=== PATIENT | male | born 1980 | race Caucasian/White ===

== ENCOUNTER 2017-02-06 09:12 | Emergency (ER) | payer SELFPAY ==
[2017-02-06 09:39] VITALS: BP 127/79
--- NOTE | 2017-02-06 11:18 | RAD ---
INDICATION: Right hand injury COMPARISON: None TECHNIQUE: AP, lateral, and oblique views were obtained. FINDINGS: There is no acute fracture or dislocation. There is soft tissue swelling. IMPRESSION: NEGATIVE RIGHT HAND
--- NOTE | 2017-02-06 11:33 | UC ---
Hand/Wrist HPI - HPI Summary HPI Summary: TRIPPED AND FELL YESTERDAY. LANDED ON MEDIAL SIDE OF RIGHT WRIST AND HAND. HAS SOME PAIN. NO NUMBNESS OR TINGLING. - History Of Current Complaint Chief Complaint: UCUpperExtremity Stated Complaint: FELL-RT ARM/WRIST INJURY Time Seen by Provider: 02/06/17 10:50 Hx Obtained From: Patient Onset/Duration: Sudden Onset, Lasting Hours, Still Present Severity Initially: Mild Severity Currently: Mild Pain Intensity: 2 Pain Scale Used: 0-10 Numeric Character Of Pain: Aching Aggravating Factor(s): Movement Alleviating: Rest Associated Signs And Symptoms: Negative: Swelling, Redness, Bruising, Fever, Weakness, Numbness/Tingling Related History: Dominant Hand Right - Allergies/Home Medications Allergies/Adverse Reactions: Allergies Allergy/AdvReac Type Severity Reaction Status Date / Time No Known Allergies Allergy Verified 02/06/17 09:39 Home Medications: Home Medications FLUoxetine CAP* [Prozac CAP*] 40 mg PO DAILY 02/06/17 [History Confirmed ] PMH/Surg Hx/FS Hx/Imm Hx Endocrine History Of: Denies: Diabetes, Thyroid Disease Cardiovascular History Of: Denies: Cardiac Disorders, Hypertension Respiratory History Of: Denies: COPD, Asthma GI/ History Of: Denies: Ulcer Psychological History Of: Reports: Depression - Family History Known Family History: Negative: Hypertension - Social History Alcohol Use: None Substance Use Type: None Smoking Status (MU): Never Smoked Tobacco Review of Systems Constitutional: Negative Skin: Negative Respiratory: Negative Cardiovascular: Negative Gastrointestinal: Negative Musculoskeletal: Arthralgia All Other Systems Reviewed And Are Negative: Yes Physical Exam Triage Information Reviewed: Yes Appearance: Well-Appearing, No Pain Distress, Well-Nourished Vital Signs: Initial Vital Signs Temp 98.6 F 02/06/17 09:33 Pulse 73 02/06/17 09:33 Resp 16 02/06/17 09:33 BP 127/79 02/06/17 09:33 Pulse Ox 97 02/06/17 09:33 Vital Signs Reviewed: Yes Eyes: Positive: Conjunctiva Clear ENT: Positive: Hearing grossly normal Neck: Positive: Supple Respiratory: Positive: No respiratory distress, No accessory muscle use Cardiovascular: Positive: Pulses Normal Abdomen Description: Positive: Soft Musculoskeletal: Positive: ROM Intact, No Edema, Other: - MILDLY TENDER OVER 4TH AND 5TH METACARPALS RIGHT HAND. MILD EDEMA Neurological: Positive: Alert Psychological: Positive: Age Appropriate Behavior Skin: Negative: rashes Diagnostics - Radiology RIGHT HAND XRAYS Xray Interpretation: Positive (See Comments) - SOFT TISSUE SWELLING Radiology Interpretation Completed By: Radiologist Hand/Wrist Course/Dx - Differential Dx/Diagnosis Provider Diagnoses: RIGHT HAND CONTUSION Discharge - Discharge Plan Condition: Stable Disposition: HOME Patient Education Materials: Contusion in Adults (ED) Referrals: No Primary Care Phys,NOPCP [Primary Care Provider] - Additional Instructions: XRAY NEGATIVE FOR FRACTURE OR DISLOCATION. OTC MEDS NEEDED FOR DISCOMFORT. CONTUSION: Your injury has resulted in a contusion -- a crushing of the deep tissues. No injury to important structures was detected during the physician's exam. Contusions vary in the amount of pain they cause, and in the length of time required for healing. Typically, the area will become bruised, and will remain painful to touch for two or three weeks. However, most patients are back to working and playing within a few days. After the initial period of rest and cold-packs, your symptoms (together with the doctor's recommendations) will determine how rapidly you can get back to full activity. Usually this means "do what feels okay, but don't do things that hurt." If re-examination was recommended, it's important to follow up as instructed. Call the doctor or return any time if pain increases, if swelling becomes severe, if you develop numbness or weakness in an injured extremity, or if any other alarming symptoms occur. CALL THE NUMBER BELOW FOR ASSISTANCE IN ESTABLISHING WITH A PCP An additional resource available to assist in finding the appropriate physician for your health care needs is the [facility] ([facility]). You may contact them by calling [phone].
== END 2017-02-06 11:43 | disposition home or self-care (01) ==
LOC: UCEAST 09:12
DX: S60.221A Contusion of right hand, initial encounter (principal); W01.0XXA Fall on same level from slipping, tripping and stumbling without subsequent striking against object, initial encounter; Y93.9 Activity, unspecified; Y92.9 Unspecified place or not applicable; F32.9 Major depressive disorder, single episode, unspecified
CPT/HCPCS: 99211; G0463

== ENCOUNTER 2017-02-20 17:33 | Emergency (ER) | payer BC ==
[2017-02-20] MEDS ORDERED: Ondansetron ODT TAB* 4 MG PO ONE (18:46)
--- NOTE | 2017-02-20 18:47 | UC ---
Abdominal Pain Male HPI - HPI Summary HPI Summary: Day 2 of abd pain nausea not hungry, no vomiting or diarrhea, low grade temp right flank pain - History of Current Complaint Chief Complaint: UCGeneralIllness Stated Complaint: DIZZINESS, AND ABDOMINAL PAIN Time Seen by Provider: 02/20/17 18:41 Hx Obtained From: Patient Onset/Duration: Gradual Onset, Lasting Days - 2, Still Present Timing: Constant Severity Initially: Moderate Severity Currently: Moderate Pain Intensity: 6 Pain Scale Used: 0-10 Numeric Location: Epigastric Radiates: No Radiates to: Flank Character: Aching Aggravating Factor(s):: Food Alleviating Factor(s): Nothing Associated Signs And Symptoms: Positive: Fever, Back Pain, Decreased Appetite, Nausea. Negative: Blood in Stool, Urinary Symptoms, Vomiting, Diarrhea, Penile Discharge - Allergies/Home Medications Allergies/Adverse Reactions: Allergies Allergy/AdvReac Type Severity Reaction Status Date / Time No Known Allergies Allergy Verified 02/20/17 17:40 Home Medications: Home Medications Cholecalciferol [Vitamin D] 1,000 unit PO DAILY 02/20/17 [History Confirmed ] PMH/Surg Hx/FS Hx/Imm Hx Previously Healthy: No Endocrine History Of: Denies: Diabetes, Thyroid Disease Cardiovascular History Of: Denies: Cardiac Disorders, Hypertension Respiratory History Of: Denies: COPD, Asthma GI/ History Of: Denies: Ulcer Psychological History Of: Reports: Depression - Surgical History Surgical History: None - Family History Known Family History: Negative: Hypertension - Social History Occupation: Employed Full-time Lives: With Family Alcohol Use: None Substance Use Type: None Smoking Status (MU): Never Smoked Tobacco Review of Systems Constitutional: Fatigue Skin: Negative Eyes: Negative ENT: Negative Respiratory: Negative Cardiovascular: Negative Gastrointestinal: Abdominal Pain Genitourinary: Negative Motor: Negative Neurovascular: Negative Musculoskeletal: Negative Neurological: Headache Psychological: Negative All Other Systems Reviewed And Are Negative: Yes Physical Exam Triage Information Reviewed: Yes Appearance: Ill-Appearing, Pain Distress, Obese Vital Signs: Initial Vital Signs Temp 100.4 F 02/20/17 17:37 Pulse 87 02/20/17 17:37 Resp 16 02/20/17 17:37 BP 129/81 02/20/17 17:37 Pulse Ox 99 02/20/17 17:37 Vital Signs Reviewed: Yes Eye Exam: Normal Eyes: Positive: Conjunctiva Clear ENT Exam: Normal ENT: Positive: Normal ENT inspection, Hearing grossly normal, Pharynx normal, TMs normal. Negative: Nasal congestion, Nasal drainage, Tonsillar swelling, Tonsillar exudate, Trismus, Muffled/hoarse voice Dental Exam: Normal Neck exam: Normal Neck: Positive: Supple, Nontender, No Lymphadenopathy Respiratory Exam: Normal Respiratory: Positive: Chest non-tender, Lungs clear, Normal breath sounds, No respiratory distress, No accessory muscle use Cardiovascular Exam: Normal Cardiovascular: Positive: RRR, No Murmur, Pulses Normal, Brisk Capillary Refill Abdominal Exam: Normal Abdomen Description: Positive: No Organomegaly, Soft, CVA Tenderness (R). Negative: Distended, Guarding, McBurney's Point Tenderness, Peritoneal Signs, Splenomegaly Bowel Sounds: Positive: Present Musculoskeletal Exam: Normal Musculoskeletal: Positive: Strength Intact, ROM Intact, No Edema Neurological Exam: Normal Neurological: Positive: Alert, Muscle Tone Normal Psychological Exam: Normal Skin Exam: Normal Diagnostics - Laboratory Diagnostic Studies Completed/Ordered: ua-+ blood, bili, urobili, protien - Radiology No standard instances Xray Interpretation: No Acute Changes Radiology Interpretation Completed By: Radiologist Abd Pain Male Course/Dx - Course Course Of Treatment: NPO, to [facility] [place] by [facility] car for further evaluation - Differential Dx/Clinical Impression Differential Diagnosis/HQI/PQRI: Appendicitis, Diverticulitis, Gall Bladder Disease, Ischemic Bowel, Pancreatitis, Renal Colic Provider Diagnoses: Abd Pain, hematuria - Physician Notification/Consults Discussed Patient Care With: Ibeth VILLAGOMEZ Time Discussed With Above Provider: 20:30 Instructed by Provider To: Transfer Discharge - Discharge Plan Condition: Fair Disposition: AGAINST MEDICAL ADVICE
--- NOTE | 2017-02-20 20:17 | RAD ---
Indication: Right flank pain, hematuria. CT of the abdomen and pelvis was performed without oral or IV contrast administration. Coronal and sagittal reconstructed images were obtained. Lung bases demonstrate some scarring in the left lung base. No pleural fluid is identified. The heart demonstrates no pericardial effusion. Liver is normal in size. No focal lesions or intrahepatic ductal dilatation is noted. The gallbladder demonstrates no calcified gallstones. No pericholecystic fluid or wall thickening is noted. The spleen is normal in size. The pancreas images no mass or pancreatic duct dilatation. The common duct is not dilated. No adrenal masses are noted. The kidneys demonstrate no hydronephrosis in either kidney. No retroperitoneal lymphadenopathy is noted. No dilated loops of bowel are noted. Aorta and inferior vena cava are unremarkable. CT of the pelvis demonstrates no retroperitoneal or pelvic lymphadenopathy. The urinary bladder is otherwise unremarkable. No evidence of obstructive uropathy is noted. Urinary bladder is unremarkable. No free fluid is identified. No hernias are identified. IMPRESSION: NO EVIDENCE OF OBSTRUCTIVE UROPATHY IS NOTED. NO OTHER MASSES OR FLUID COLLECTIONS ARE IDENTIFIED.
[2017-02-20 20:48] VITALS: BP 127/85
== END 2017-02-20 20:48 | disposition left against medical advice (07) ==
LOC: UCEAST 17:33
DX: R10.9 Unspecified abdominal pain (principal); R31.9 Hematuria, unspecified
CPT/HCPCS: 74176; 81003; 99212; A9270-GY; G0463

== ENCOUNTER 2017-02-20 20:56 | Emergency (ER) | payer BC ==
[2017-02-21] MEDS ORDERED: NS 0.9% 1000 ML* 1,000 ML IV ONE (01:07)
[2017-02-21] MEDS ORDERED: Ondansetron INJ* 2 MG/ML VIAL IV ONE (01:17)
--- NOTE | 2017-02-21 01:35 | ED ---
GI/ HPI - HPI Summary HPI Summary: 36M presents with lightheadedness and queasy feeling in stomach for 2 days. He states he is lightheaded with standing. HE was seen at urgent care where they found microscopic blood in his urine so they did a CT which was normal. He denies any flank pain, abdominal pain, diarrhea or constipation. He denies any dysuria. He denies any chest pain or SOB. He admits to a decrease in appetite, nausea, and vomiting. His is sick also. - History of Current Complaint Chief Complaint: EDGeneral Time Seen by Provider: 02/21/17 01:05 Stated Complaint: HEADACHE/UPSET STOMACH Pain Intensity: 7 - Allergy/Home Medications Allergies/Adverse Reactions: Allergies Allergy/AdvReac Type Severity Reaction Status Date / Time No Known Allergies Allergy Verified 02/20/17 17:40 PMH/Surg Hx/FS Hx/Imm Hx Endocrine/Hematology History: Denies: Hx Diabetes, Hx Thyroid Disease Cardiovascular History: Denies: Hx Hypertension Respiratory History: Denies: Hx Asthma, Hx Chronic Obstructive Pulmonary Disease (COPD) GI History: Denies: Hx Ulcer Psychiatric History: Reports: Hx Depression Infectious Disease History: No Infectious Disease History: Denies: Hx Clostridium Difficile, Hx Hepatitis, Hx Human Immunodeficiency Virus (HIV), Hx of Known/Suspected MRSA, Hx Shingles, Hx Tuberculosis, Traveled Outside the [place] in Last 30 Days - Family History Known Family History: Negative: Hypertension - Social History Alcohol Use: None Substance Use Type: Reports: None Smoking Status (MU): Never Smoked Tobacco Review of Systems Negative: Fever Negative: Chest Pain Negative: Shortness Of Breath Positive: Vomiting, Nausea. Negative: Abdominal Pain, Diarrhea Neurological: Other - lightheaded All Other Systems Reviewed And Are Negative: Yes Physical Exam Triage Information Reviewed: Yes Vital Signs On Initial Exam: Initial Vitals Temp Pulse Resp BP Pulse Ox 98.6 F 89 18 142/69 100 02/20/17 20:59 02/20/17 20:59 02/20/17 20:59 02/20/17 20:59 02/20/17 20:59 Vital Signs Reviewed: Yes Appearance: Positive: Well-Appearing Skin: Positive: Warm, Dry Head/Face: Positive: Normal Head/Face Inspection Eyes: Positive: Normal, Conjunctiva Clear Respiratory/Lung Sounds: Positive: Clear to Auscultation, Breath Sounds Present Cardiovascular: Positive: Normal, RRR Abdomen Description: Positive: Nontender, Soft Bowel Sounds: Positive: Present - Mac Coma Scale Coma Scale Total: 15 Diagnostics - Vital Signs Vital Signs Temp Pulse Resp BP Pulse Ox 02/21/17 01:05 82 97 02/21/17 01:03 123/72 02/21/17 01:00 99.8 F 81 16 123/72 97 02/20/17 20:59 98.6 F 89 18 142/69 100 - Laboratory Result Diagrams: 02/21/17 01:37 02/21/17 01:37 Lab Statement: Any lab studies that have been ordered have been reviewed, and results considered in the medical decision making process. GIGU Course/Dx - Course Course Of Treatment: 36M presents with nausea, vomiting, decreae appetie, and lightheadness upon standing. at urgent care had low grade temp. denies any chest pain or SOB. CT abdomen urgent care normal. on exam abdomen nontender. labs wbc 7.4, sodium and cloride low so gave fluids and zofran and patient felt better. explained lightheadness likely due to dehydration so need to drink more fluids and stand up slowly. patient understands and agrees with plan. - Diagnoses Differential Diagnoses - Male: Gastroenteritis (Bacterial), Gastroenteritis ( Viral), Urinary Tract Infection, Vomiting Provider Diagnoses: Nausea, Lightheadedness Discharge - Discharge Plan Condition: Good Disposition: HOME Prescriptions: Ondansetron ODT TAB* [Zofran 4 MG Odt TAB*] 4 mg PO Q6H PRN #15 tab.odt PRN Reason: Nausea Patient Education Materials: Acute Nausea and Vomiting (ED) Forms: *Work Release Referrals: [facility] [place] PHYSICIAN REFERRAL [Outside] Additional Instructions: Can take Zofran every 6 hours as needed for nausea Drink small amounts of fluid as tolerated When able to eat follow BRAT diet: Bananas, rice, applesauce, toast Take ibuprofen or Tylenol for pain as needed every 6 hours Establish care with primary care physician Return to ED if develop fever, severe abdominal pain, or any new or worsening symptoms
[2017-02-21 02:10] LABS: ALT 12 U/L (7-52); AST 15 U/L (13-39); Albumin 4.1 g/dL (3.2-5.2); Alkaline Phosphatase 55 U/L (34-104); Anion Gap 6 mmol/L (2-11); BUN/Creatinine Ratio 11.3 (8-20); Blood Urea Nitrogen 11 mg/dL (6-24); CO2 Carbon Dioxide 27 mmol/L (22-32); Chloride 98 mmol/L (101-111); EGFR African American 113.9 (>60); EGFR Non-African American 88.6 (>60); Globulin 3.4 g/dL (2-4); Glucose 121 mg/dL (70-100); Hematocrit 43 % (42-52); Lipase < 10 U/L (11.0-82.0); Mean Corpuscular HGB Conc 35 g/dl (31-36); Mean Corpuscular Hemoglobin 32 pg (27-31); Mean Corpuscular Volume 92 fL (80-94); Mean Platelet Volume 9 um3 (7.4-10.4); Potassium 3.6 mmol/L (3.5-5.0); Red Blood Count 4.64 10^6/ul (4.0-5.4); Red Cell Distribution Width 13 % (10.5-15); Sodium 131 mmol/L (133-145); Total Protein 7.5 g/dL (6.4-8.9); White Blood Count 7.4 10^3/ul (3.5-10.8)
[2017-02-21] MEDS ORDERED: Ondansetron ODT TAB* 4 MG PO ONE (02:26)
[2017-02-21 04:06] VITALS: BP 109/72
== END 2017-02-21 03:55 | disposition home or self-care (01) ==
LOC: ED 20:56
DX: R42 Dizziness and giddiness (principal); R51 Headache; R11.0 Nausea
CPT/HCPCS: 36415; 80053; 83690; 85025; 86141; 96361; 96374; 99283; A9270-GY

== ENCOUNTER 2019-09-21 17:29 | Emergency (ER) | payer BC ==
--- NOTE | 2019-09-21 17:36 | UC ---
Back Pain HPI - HPI Summary HPI Summary: 39 yo male presents, accompanied by , with low back pain. He tells me that earlier today around noon he was lifting a >100lb object with the help of friends to load into his truck. [place] a small "twinge" in her left lower back at that time. He took 400mg ibuprofen and then had a [address] When he got home and was in the process of unloading the item he felt a pull across his lower back horizontally that took his breath away and felt like a tight spasm. Since that time the area has felt tight and has been in spasm. It has been about 6 hours since he took ibuprofen. He mentions that he has a history of low back pain about 4 years ago from his last job. Denies numbness, tingling, saddle anesthesia, abdominal pain, loss of bowel/bladder control, or radiation of pain. - History of Current Complaint Stated Complaint: LOW BACK PAIN Time Seen by Provider: 09/21/19 17:36 Hx Obtained From: Patient Onset/Duration: Sudden Onset Severity Initially: Moderate Severity Currently: Severe Pain Intensity: 9 Pain Scale Used: 0-10 Numeric - Allergies/Home Medications Allergies/Adverse Reactions: Allergies Allergy/AdvReac Type Severity Reaction Status Date / Time No Known Allergies Allergy Verified 09/21/19 17:45 Home Medications: Home Medications Ibuprofen TAB* [Advil TAB*] 400 mg PO Q6H PRN 09/21/19 [History Confirmed ] PMH/Surg Hx/FS Hx/Imm Hx Psychological History: Anxiety, Depression - Surgical History Surgical History: None - Family History Known Family History: Positive: None Negative: Hypertension - Social History Occupation: Employed Full-time Lives: With Family Alcohol Use: None Substance Use Type: Prescribed Smoking Status (MU): Never Smoked Tobacco Review of Systems All Other Systems Reviewed And Are Negative: No Constitutional: Positive: Negative Skin: Positive: Negative Respiratory: Positive: Negative Cardiovascular: Positive: Negative Musculoskeletal: Positive: Other: - Low back pain Neurological: Positive: Negative Psychological: Positive: Negative Physical Exam - Summary Physical Exam Summary: GENERAL: NAD. WDWN. No pain distress. SKIN: No rashes, sores, lesions, or open wounds. NECK: Supple. FROM. Nontender. No lymphadenopathy. CHEST: CTAB. No r/r/w. No accessory muscle use. Breathing comfortably and in no distress. CV: RRR. Pulses intact. Cap refill <2seconds MSK: TTP over lumbar paraspinal muscles. Pain with flexion and extension of spine. Positive SLR b/l for low back pain without radiation worse on left. Strength 5/5 B/L LEs including dorsiflexion and plantar flexion. FROM B/L LEs. No edema. NEURO: Alert. Sensations intact B/L LEs L3-S1. Reflexes intact PSYCH: Age appropriate behavior. Triage Information Reviewed: Yes Vital Signs: Vital Signs: Temp Pulse Resp BP Pulse Ox 99.1 F 75 18 119/70 99 09/21/19 17:47 09/21/19 17:47 09/21/19 17:47 09/21/19 17:47 09/21/19 17:47 Vital Signs Reviewed: Yes Diagnostics - Radiology Lumbar XR Radiology Interpretation Completed By: ED Physician Summary of Radiographic Findings: No acute process Back Pain Course/Dx - Course Course Of Treatment: XR wet read negative. In the clinic pt was given toradol IM and flexeril for his pain. Suspect low back muscle spasm. Will rx for flexeril, norco for severe pain, and naproxen. Advised to rest, ice/heat, gentle stretches, and f/u with PCP for recheck in 1- 2 weeks - Differential Dx/Diagnosis Provider Diagnosis: Low back pain Discharge ED - Sign-Out/Discharge Documenting (check all that apply): Patient Departure All imaging exams completed and their final reports reviewed: No - Discharge Plan Condition: Stable Disposition: HOME Prescriptions: Cyclobenzaprine TAB* [Flexeril 10 MG TAB*] 10 mg PO TID PRN #21 tab PRN Reason: Pain - Mild HYDROcodone/ACETAMIN 5-325 MG* [Muir 5-325 TAB*] 1 tab PO BID PRN #4 tab MDD 2 PRN Reason: Pain - Severe Naproxen [Naproxen 500 mg tab] 500 mg PO BID PRN #20 tablet. PRN Reason: Pain - Mild Patient Education Materials: Low Back Strain (ED), Lower Back Exercises (ED) Forms: *Work Release Referrals: Janna Hernandez MD [Primary Care Provider] - 2 Weeks Additional Instructions: If you develop a fever, shortness of breath, chest pain, new or worsening symptoms - please call your PCP or go to the ED immediately. Rest and apply ice/heat to your back to reduce pain Practice gentle range of motion exercises to loosen the back muscles I recommend that you be rechecked by your primary doctor within 1-2 weeks - Billing Disposition and Condition Condition: STABLE Disposition: Home
--- OUTSIDE RECORDS SUMMARY | 2019-09-21 17:40 | XMS REPORT | Continuity of Care Document ---
:1980 External Reference #:[id number] Author Name Jaswinder Navarro N.P. Address [address] [place] [address] Care Team Providers Name Role Phone Janna Hernandez MD - Family Medicine Care Team Information Cook Boat Problems Description No Information Available Social History Type Date Description Comments Sex Unknown ETOH Use Denies alcohol use Tobacco Use Start: Unknown Patient has never smoked Recreational Drug Use Denies Drug Use Allergies, Adverse Reactions, Alerts Description No Known Drug Allergies Medications Active Medications SIG Qnty Indications Ordering Provider Date Vitamin D-3 1 by mouth 90caps E55.9 David, [facility]gisel M., 06/16/2016 1000Unit every day M.D. Capsules Fluoxetine HCL 1 cap by mouth 90caps F41.9 David, payton M., 40mg every day M.D. Capsules F33.9 G47.00 History Medications Levofloxacin 1 by mouth 14tabs J01.40 David, payton 03/18/2019 - 750mg every day M., M.D. 04/01/2019 Tablets Prednisone 2 tab by mouth 8tabs J01.40 David, magisel 03/18/2019 - 20mg Tablets daily 4 days M., M.D. 03/21/2019 Azithromycin 1 tab by mouth 10tabs J20.9 David, [facility]gisel 03/05/2019 - 500mg every day x 10 M., M.D. 03/17/2019 Tablets days Immunizations CPT Code Status Date Vaccine Lot # [id number] Given 06/29/2017 TDaP [id number] Vital Signs Date Vital Result Comment 08/04/2019 12:58pm BP Systolic 125 mmHg BP Diastolic 67 mmHg Height 75 inches 6'3" Weight 293.00 lb BMI (Body Mass Index) 36.6 kg/m2 Heart Rate 78 /min Respiratory Rate 16 /min 03/18/2019 2:42pm BP Systolic 118 mmHg BP Diastolic 78 mmHg Height 75 inches 6'3" Weight 290.00 lb BMI (Body Mass Index) 36.2 kg/m2 Heart Rate 101 /min Body Temperature 98.1 F Respiratory Rate 18 /min Results Test Acquired Date Facility Test Result H/L Range Note CBC With Diff 03/05/2019 [facility] WBC 7.3 10*3/uL (4.1-11.0) [address] (607)- - RBC 5.10 10*6/uL (4.60-6.10) HGB 16.6 g/dL (13.5-18.0) HCT 48.0 % (41.0-53.0) MCV 94.0 fL (80.0-95.0) MCH 32.5 pg High (27.0-32.0) MCHC 34.5 g/dL (32.0-36.0) RDW 13.5 % (10.5-14.5) PLT 313 10*3/uL (150-450) MPV 8.8 fL (7.1-10.7) Neut % 61.6 % (35.0-75.0) Lymph % 26.4 % (16.0-52.0) [place] % 8.9 % High (0.0-8.0) Eos % 2.8 % (0.0-5.0) Baso % 0.3 % (0.0-4.0) Neut # 4.5 10*3/uL (1.8-7.7) Lymph # 1.9 10*3/uL (1.2-4.8) [place] # 0.7 10*3/uL (0.0-0.8) Eos # 0.2 10*3/uL (0.0-0.5) Baso # 0.0 10*3/uL (0.0-0.2) CMP 03/05/2019 [facility] Sodium 138 mmol/L (136-145) [address] (607)- - Potassium 4.7 mmol/L (3.6-5.2) Chloride 105 mmol/L (100-108) Co2 27 mmol/L (22-31) Anion Gap 6 mmol/L Low (7-16) Urea Nitrogen 10 mg/dL (7-24) Creatinine 0.94 mg/dL (0.80-1.30) BUN/Creat Ratio 10.6 RATIO (10.0-20.0) Glucose 96 mg/dL (70-99) Calcium 9.0 mg/dL (8.4-10.2) Total Protein 8.6 g/dL High (6.4-8.2) Albumin 4.3 g/dL (3.5-4.6) Globulin 4.3 g/dL (2.7-4.3) Alb/Glob Ratio 1.0 RATIO Alkaline Phosphatase 68 U/L (45-117) Bilirubin,Total 1.1 mg/dL High (0.0-1.0) Ast (Sgot) 16 U/L (11-39) Alt (SGPT) 25 U/L (12-78) GFR >60 ml/min/1.73m2 (>59) GFR ( Amer) >60 ml/min/1.73m2 (>59) GFR Interpretation <SEE NOTE> 1 Laboratory test 03/05/2019 [facility] 25 Hydroxy Vit D 24 ng/mL Low (31 -100) 2 finding [address] @ (607)- - Hemoglobin A1c 03/05/2019 [facility] Hemoglobin A1c @ 5.1 % (4.0-6.0) 3 [address] (714)- - Est Average Glucose 100 mg/dL Lipid 03/05/2019 [facility] Cholesterol @ 183 mg/dL (0-200) [address] (267)- - Triglyceride @ 69 mg/dL (30-200) HDL Cholesterol @ 45 mg/dL (>40) 4 Chol/HDL Ratio 4.1 RATIO 5 LDL Chol (Calc) 124 mg/dL (<130) 6 Laboratory 03/05/2019 [facility] TSH,Ultrasensitive @ 2.170 (0.360- 4.170) test finding Tabby QUAN mIU/L (116)- - 1 NORMAL KIDNEY FUNCTION OR MILD DISEASE - GFR >OR= 60 CHRONIC KIDNEY DISEASE - GFR 15 - 59 RENAL FAILURE - GFR <15 Est. GFR calculation based on the MDRD study equation, which assumes a steady state for creatinine. Est. GFR should not be used for medication dosing. 2 A REVIEW OF THE LITERATURE SUGGESTS THE FOLLOWING RANGES FOR THE CLASSIFICATION OF 25-OH VITAMIN D STATUS: VITAMIN D STATUS 25-OH VITAMIN D DEFICIENCY <20 NG/ML INSUFFICIENCY 20-30 NG/ML SUFFICIENCY 31 - 100 NG/ML TOXICITY > 100 NG/ML A PEDIATRIC REFERENCE RANGE HAS NOT BEEN ESTABLISHED USING THIS METHOD. 3 Performed using VoodooVox immunoassay. Care must be taken when interpreting HbA1c results in patients with a hemoglobin variant or decreased erythrocyte lifespan. Values 5.7 - 6.4% suggest prediabetes. Values >=6.5% are diagnostic for diabetes. REFERENCE: DIABETES CARE 2018: 41(S13-S27). 4 PER NCEP ATP III GUIDELINES: RESULTS LOWER THAN 40 MG/DL ARE SUGGESTIVE OF INCREASED RISK FOR CORONARY ARTERY DISEASE. RESULTS > OR = TO 60 MG/DL ARE CONSIDERED A NEGATIVE RISK FACTOR. 5 INTERPRETATION OF CHOL-HDL RATIO CHD RISK FEMALE MALE VERY HIGH >8.3 >14.3 HIGH 5.6- 8.3 6.7- 14.3 AVERAGE 3.7- 5.6 4.0- 6.7 BELOW AVERAGE 2.5- 3.7 2.7- 4.0 PROTECTED <2.5 <2.7 6 PER NCEP ATP III GUIDELINES: OPTIMAL < 100 NEAR OPTIMAL 100 - 129 BORDERLINE HIGH 130 - 159 HIGH 160 - 189 VERY HIGH > 189 Procedures Date Code Description Status 03/18/2019 97802 Visual Screening Test Completed 03/18/2019 54363 Spirometry Completed 03/18/2019 55386 Tympanometry Completed 03/18/2019 51064 Audiometry, Bekesy, Screening Completed 03/05/2019 12479 Spirometry Completed 03/05/2019 92907 Tympanometry Completed Medical Devices Description No Information Available Encounters Type Date Location Provider Dx Diagnosis Office Visit 08/04/2019 [facility] Jaswinder Navarro, L20.9 Atopic dermatitis, 1:00p N.P. unspecified J30.9 Allergic rhinitis, unspecified E55.9 Vitamin D deficiency, unspecified F41.9 Anxiety disorder, unspecified F33.9 Major depressive disorder, recurrent, unspecified G47.00 Insomnia, unspecified E66.01 Morbid (severe) obesity due to excess calories R00.2 Palpitations E78.2 Mixed hyperlipidemia M54.2 Cervicalgia M54.5 Low back pain H92.03 Otalgia, bilateral J01.40 Acute pansinusitis, unspecified J20.9 Acute bronchitis, unspecified H66.93 Otitis media, unspecified, bilateral R06.02 Shortness of breath R05 Cough M79.672 Pain in left foot Z00.01 Encounter for general adult medical exam w abnormal findings Office Visit 03/18/2019 2:45p [facility] Janna Hernandez L20.9 Atopic Bhavesh naranjo M.D. unspecified J30.9 Allergic rhinitis, unspecified E55.9 Vitamin D deficiency, unspecified F41.9 Anxiety disorder, unspecified F33.9 Major depressive disorder, recurrent, unspecified G47.00 Insomnia, unspecified E66.01 Morbid (severe) obesity due to excess calories R00.2 Palpitations E78.2 Mixed hyperlipidemia M54.2 Cervicalgia M54.5 Low back pain H92.03 Otalgia, bilateral J01.40 Acute pansinusitis, unspecified J20.9 Acute bronchitis, unspecified H66.93 Otitis media, unspecified, bilateral R06.02 Shortness of breath R05 Cough Z00.01 Encounter for general adult medical exam w abnormal findings Office Visit 03/05/2019 9:45a [facility] Jaswinder Navarro, L20.9 Atopic dermatitis, N.P. unspecified J30.9 Allergic rhinitis, unspecified E55.9 Vitamin D deficiency, unspecified F41.9 Anxiety disorder, unspecified F33.9 Major depressive disorder, recurrent, unspecified R05 Cough G47.00 Insomnia, unspecified E66.01 Morbid (severe) obesity due to excess calories R00.2 Palpitations E78.2 Mixed hyperlipidemia M54.2 Cervicalgia M54.5 Low back pain H92.03 Otalgia, bilateral J01.40 Acute pansinusitis, unspecified J20.9 Acute bronchitis, unspecified Assessments Date Code Description Provider 08/04/2019 L20.9 Atopic dermatitis, unspecified Jaswinder Navarro, N.P. 08/04/2019 J30.9 Allergic rhinitis, unspecified Jaswinder Navarro, N.P. 08/04/2019 E55.9 Vitamin D deficiency, unspecified Jaswinder Navarro, N.P. 08/04/2019 F41.9 Anxiety disorder, unspecified Jaswinder Navarro, N.P. 08/04/2019 F33.9 Major depressive disorder, recurrent, Jaswinder Navarro, N.P. unspecified 08/04/2019 G47.00 Insomnia, unspecified Jaswinder Navarro, N.P. 08/04/2019 E66.01 Morbid (severe) obesity due to excess Jaswinder Navarro, N.P. calories 08/04/2019 R00.2 Palpitations Jaswinder Navarro N.P. 08/04/2019 E78.2 Mixed hyperlipidemia Jaswinder Navarro N.P. 08/04/2019 M54.2 Cervicalgia Jaswinder Navarro N.P. 08/04/2019 M54.5 Low back pain Jaswinder Navarro, N.P. 08/04/2019 H92.03 Otalgia, bilateral Jaswinder Navarro, N.P. 08/04/2019 J01.40 Acute pansinusitis, unspecified Jaswinder Navarro, N.P. 08/04/2019 J20.9 Acute bronchitis, unspecified Jaswinder Navarro, N.P. 08/04/2019 H66.93 Otitis media, unspecified, bilateral Jaswinder Navarro N.P. 08/04/2019 R06.02 Shortness of breath Jaswinder Navarro N.P. 08/04/2019 R05 Cough Jaswinder Navarro, N.P. 08/04/2019 M79.672 Pain in left foot Jaswinder Navarro N.P. 08/04/2019 Z00.01 Encounter for general adult medical Jaswinder Navarro N.Poli examination with abnormal findings 03/19/2019 L20.9 Atopic dermatitis, unspecified Jaswinder Navarro, N.P. 03/19/2019 J30.9 Allergic rhinitis, unspecified Jaswinder Navarro N.P. 03/19/2019 E55.9 Vitamin D deficiency, unspecified Jaswinder Navarro N.P. 03/19/2019 F41.9 Anxiety disorder, unspecified Jaswinder Navarro, N.P. 03/19/2019 F33.9 Major depressive disorder, recurrent, Jaswinder Navarro, N.P. unspecified 03/19/2019 R05 Cough Jaswinder Navarro, N.P. 03/19/2019 G47.00 Insomnia, unspecified Jaswinder Navarro, N.P. 03/19/2019 E66.01 Morbid (severe) obesity due to excess Jaswinder Navarro, N.P. calories 03/19/2019 R00.2 Palpitations Jaswinder Navarro, N.P. 03/19/2019 E78.2 Mixed hyperlipidemia Jaswinder Navarro, N.P. 03/19/2019 M54.2 Cervicalgia Jaswinder Navarro, N.P. 03/19/2019 M54.5 Low back pain Jaswinder Navarro, N.P. 03/19/2019 H92.03 Otalgia, bilateral Jaswinder Navarro, N.P. 03/19/2019 J01.40 Acute pansinusitis, unspecified Jaswinder Navarro, N.P. 03/19/2019 J20.9 Acute bronchitis, unspecified Jaswinder Navarro, N.P. 03/18/2019 L20.9 Atopic dermatitis, unspecified Janna Hernandez M.D. 03/18/2019 J30.9 Allergic rhinitis, unspecified Janna Hernandez M.D. 03/18/2019 E55.9 Vitamin D deficiency, unspecified Janna Hernandez M.D. 03/18/2019 F41.9 Anxiety disorder, unspecified Janna Hernandez M.D. 03/18/2019 F33.9 Major depressive disorder, recurrent, Janna Hernandez M.D. unspecified 03/18/2019 G47.00 Insomnia, unspecified Janna Hernandez M.D. 03/18/2019 E66.01 Morbid (severe) obesity due to excess Janna Hernandez M.D. calories 03/18/2019 R00.2 Palpitations Janna Hernandez M.D. 03/18/2019 E78.2 Mixed hyperlipidemia Janna Hernandez M.D. 03/18/2019 M54.2 Cervicalgia Janna Hernandez M.D. 03/18/2019 M54.5 Low back pain Janna Hernandez M.D. 03/18/2019 H92.03 Otalgia, bilateral Janna Hernandez M.D. 03/18/2019 J01.40 Acute pansinusitis, unspecified Janna Hernandez M.D. 03/18/2019 J20.9 Acute bronchitis, unspecified Janna Hernandez M.D. 03/18/2019 H66.93 Otitis media, unspecified, bilateral Janna Hernandez M.D. 03/18/2019 R06.02 Shortness of breath Janna Hernandez M.D. 03/18/2019 R05 Cough Janna Hernandez M.D. 03/18/2019 Z00.01 Encounter for general adult medical Janna Hernandez M.D. examination with abnorma 03/05/2019 L20.9 Atopic dermatitis, unspecified Jaswinder Navarro, N.P. 03/05/2019 J30.9 Allergic rhinitis, unspecified Jaswinder Navarro, N.P. 03/05/2019 E55.9 Vitamin D deficiency, unspecified Jaswinder Navarro, N.P. 03/05/2019 F41.9 Anxiety disorder, unspecified Jaswinder Navarro, N.P. 03/05/2019 F33.9 Major depressive disorder, recurrent, Jaswinder Navarro, N.P. unspecified 03/05/2019 R05 Cough Jaswinder Navarro, N.P. 03/05/2019 G47.00 Insomnia, unspecified Jaswinder Navarro, N.P. 03/05/2019 E66.01 Morbid (severe) obesity due to excess Jaswinder Navarro, N.P. calories 03/05/2019 R00.2 Palpitations Jaswinder Navarro, N.P. 03/05/2019 E78.2 Mixed hyperlipidemia Jaswinder Navarro, N.P. 03/05/2019 M54.2 Cervicalgia Jaswinder Navarro, N.P. 03/05/2019 M54.5 Low back pain Jaswinder Navarro, N.P. 03/05/2019 H92.03 Otalgia, bilateral Jaswinder Navarro, N.P. 03/05/2019 J01.40 Acute pansinusitis, unspecified Jaswinder Navarro, N.P. 03/05/2019 J20.9 Acute bronchitis, unspecified Jaswinder Navarro, N.PAllen Plan of Treatment No Information Available Functional Status Description No Information Available Mental Status Description No Information Available Referrals Description No Information Available
[2019-09-21] MEDS ORDERED: Ketorolac *IM* INJ* 60 MG/2 ML VIAL IM ONE (17:45)
[2019-09-21] MEDS ORDERED: Cyclobenzaprine TAB* 10 MG PO ONE (17:45)
[2019-09-21 17:55] VITALS: BP 119/70
[2019-09-21] MEDS ORDERED: HYDROcodone/ACETAMIN 5-325 MG* 1 TAB PO ONE (18:33)
--- NOTE | 2019-09-22 10:47 | UC ---
- Progress Note Progress Note: Final radiologist reading of lumbosacral spine x-rays from September 21, 2019 comes back as no acute disease process. Provider interpretation same date is the same therefore there is no discrepancy. Course/Dx - Diagnoses Provider Diagnoses: Low back pain Discharge ED - Sign-Out/Discharge Documenting (check all that apply): Patient Departure All imaging exams completed and their final reports reviewed: Yes - Discharge Plan Condition: Stable Disposition: HOME Prescriptions: Cyclobenzaprine TAB* [Flexeril 10 MG TAB*] 10 mg PO TID PRN #21 tab PRN Reason: Pain - Mild HYDROcodone/ACETAMIN 5-325 MG* [[facility] 5-325 TAB*] 1 tab PO BID PRN #4 tab MDD 2 PRN Reason: Pain - Severe Naproxen [Naproxen 500 mg tab] 500 mg PO BID PRN #20 tablet.dr PRRoselyn Reason: Pain - Mild Patient Education Materials: Low Back Strain (ED), Lower Back Exercises (ED) Forms: *Work Release Referrals: Janna Hernandez MD [Primary Care Provider] - 2 Weeks Additional Instructions: If you develop a fever, shortness of breath, chest pain, new or worsening symptoms - please call your PCP or go to the ED immediately. Rest and apply ice/heat to your back to reduce pain Practice gentle range of motion exercises to loosen the back muscles I recommend that you be rechecked by your primary doctor within 1-2 weeks - Billing Disposition and Condition Condition: STABLE Disposition: Home
== END 2019-09-21 18:52 | disposition home or self-care (01) ==
LOC: UCCORT 17:29
DX: M54.5 Low back pain (principal)
CPT/HCPCS: 72110; 96372; 99212; A9270-GY; G0463; J1885